=== PATIENT | male | born 1990 | race Two or more races ===

== ENCOUNTER 2017-12-05 15:35 | Emergency (ER) | payer MEDICAID ==
[~2017-12-05] VITALS: Ht 170.2 cm; Wt 65.8 kg
[2017-12-05 16:00] VITALS: BP 111/91
== END 2017-12-05 16:32 | disposition home or self-care (01) ==
LOC: ER 15:37
DX: J11.1 Influenza due to unidentified influenza virus with other respiratory manifestations (principal); J32.9 Chronic sinusitis, unspecified
CPT/HCPCS: 99282; A4606; Z7610